=== PATIENT | female | born 1950 | race Native Hawaiian/Other Pacific Islander ===

== ENCOUNTER 2016-04-28 08:51 | Outpatient (CLI) | payer OTHER ==
[2016-04-28 09:50] LABS: POTASSIUM 4.5 mmol/L (3.6-5.2); SODIUM 134 mmol/L (136-145)
== END 2016-04-28 19:07 | disposition home or self-care (01) ==
LOC: LABW 08:51
PROVIDERS: Internal Medicine Nephrology
DX: N18.3 Chronic kidney disease, stage 3 (moderate) (principal); E78.2 Mixed hyperlipidemia; E66.8 Other obesity
CPT/HCPCS: 36415; 80048; 84443

== ENCOUNTER 2016-05-07 10:12 | Outpatient (CLI) | payer OTHER | END 2016-05-07 19:09 | disposition home or self-care (01) | LOC: RAD 10:12 | DX: R06.2 Wheezing (principal) ==

== ENCOUNTER 2016-07-26 08:08 | Outpatient (CLI) | payer OTHER ==
[2016-07-26 10:01] LABS: POTASSIUM 4.4 mmol/L (3.6-5.2)
== END 2016-07-26 19:22 | disposition home or self-care (01) ==
LOC: LABW 08:08
PROVIDERS: Internal Medicine Nephrology
DX: N18.9 Chronic kidney disease, unspecified (principal)
CPT/HCPCS: 36415; 80048; 81000; 82570; 84155

== ENCOUNTER 2016-08-19 08:51 | Outpatient (CLI) | payer OTHER | END 2016-08-19 19:06 | disposition home or self-care (01) | LOC: US 08:51 | DX: R06.2 Wheezing (principal); N18.3 Chronic kidney disease, stage 3 (moderate) ==

== ENCOUNTER 2016-09-27 13:11 | Outpatient (CLI) | payer OTHER | END 2016-09-27 19:12 | disposition home or self-care (01) | LOC: LABW 13:11 | DX: N39.0 Urinary tract infection, site not specified (principal) | CPT/HCPCS: 81000; 87086; 87088 ==

== ENCOUNTER 2016-10-04 13:21 | Outpatient (CLI) | payer OTHER | END 2016-10-04 14:30 | disposition home or self-care (01) | LOC: RAD 13:21 | DX: M54.89 Other dorsalgia (principal) ==

== ENCOUNTER 2016-10-28 09:06 | Outpatient (CLI) | payer OTHER ==
[2016-10-28 09:23] LABS: PLATELET COUNT 282 K/uL (152-353)
[2016-10-28 09:48] LABS: POTASSIUM 3.9 mmol/L (3.6-5.2)
== END 2016-10-28 19:15 | disposition home or self-care (01) ==
LOC: LABW 09:06
PROVIDERS: Internal Medicine Nephrology
DX: N18.3 Chronic kidney disease, stage 3 (moderate) (principal)
CPT/HCPCS: 36415; 80048; 85027

== ENCOUNTER 2017-01-26 09:34 | Outpatient (CLI) | payer OTHER ==
[2017-01-26 10:54] LABS: POTASSIUM 3.9 mmol/L (3.6-5.2)
== END 2017-01-26 19:28 | disposition home or self-care (01) ==
LOC: LABW 09:34
PROVIDERS: Internal Medicine Nephrology
DX: N18.3 Chronic kidney disease, stage 3 (moderate) (principal); E78.00 Pure hypercholesterolemia, unspecified; Z79.899 Other long term (current) drug therapy; Z51.81 Encounter for therapeutic drug level monitoring
CPT/HCPCS: 36415; 80053; 80061; 82306; 83970

== ENCOUNTER 2017-04-28 09:43 | Outpatient (CLI) | payer OTHER ==
[2017-04-28 10:26] LABS: POTASSIUM 4.1 mmol/L (3.6-5.2)
== END 2017-04-28 19:19 | disposition home or self-care (01) ==
LOC: LABW 09:43
PROVIDERS: Internal Medicine Nephrology
DX: N18.3 Chronic kidney disease, stage 3 (moderate) (principal); E78.2 Mixed hyperlipidemia
CPT/HCPCS: 36415; 80053; 80061

== ENCOUNTER 2017-05-05 10:45 | Outpatient (CLI) | payer OTHER | END 2017-05-05 11:45 | disposition home or self-care (01) | LOC: RAD 10:45 | DX: Z01.811 Encounter for preprocedural respiratory examination (principal) ==

== ENCOUNTER 2017-07-28 08:51 | Outpatient (CLI) | payer OTHER ==
[2017-07-28 09:26] LABS: PLATELET COUNT 365 K/uL (152-353)
== END 2017-07-28 22:04 | disposition home or self-care (01) ==
LOC: LABW 08:51
PROVIDERS: Internal Medicine Nephrology
DX: N18.3 Chronic kidney disease, stage 3 (moderate) (principal)
CPT/HCPCS: 36415; 80053; 85027

== ENCOUNTER 2017-10-26 09:35 | Outpatient (CLI) | payer OTHER ==
[2017-10-26 09:50] LABS: PLATELET COUNT 340 K/uL (152-353)
[2017-10-26 10:03] LABS: POTASSIUM 4.4 mmol/L (3.6-5.2)
== END 2017-10-26 22:35 | disposition home or self-care (01) ==
LOC: LABW 09:35
PROVIDERS: Internal Medicine Nephrology
DX: N18.3 Chronic kidney disease, stage 3 (moderate) (principal); Q61.2 Polycystic kidney, adult type
CPT/HCPCS: 36415; 80053; 82306; 83970; 84100; 85027

== ENCOUNTER 2018-02-07 09:54 | Outpatient (CLI) | payer OTHER | END 2018-02-07 21:20 | disposition home or self-care (01) | LOC: LABW 09:54 | DX: K64.0 First degree hemorrhoids (principal) | CPT/HCPCS: 82272; 87324; 87449 ==

== ENCOUNTER 2018-02-28 09:34 | Outpatient (CLI) | payer OTHER ==
[2018-02-28 09:59] LABS: POTASSIUM 4.4 mmol/L (3.6-5.2)
== END 2018-02-28 22:23 | disposition home or self-care (01) ==
LOC: LABW 09:34
PROVIDERS: Internal Medicine Nephrology
DX: N18.3 Chronic kidney disease, stage 3 (moderate) (principal)
CPT/HCPCS: 36415; 80048

== ENCOUNTER 2018-03-14 09:21 | Outpatient (CLI) | payer OTHER | END 2018-03-14 21:23 | disposition home or self-care (01) | LOC: US 09:21 | DX: Q61.2 Polycystic kidney, adult type (principal); R10.9 Unspecified abdominal pain ==

== ENCOUNTER 2018-04-27 08:34 | Outpatient (CLI) | payer OTHER ==
[2018-04-27 09:33] LABS: PLATELET COUNT 325 K/uL (152-353)
== END 2018-04-27 21:33 | disposition home or self-care (01) ==
LOC: LABW 08:34
PROVIDERS: Internal Medicine Nephrology
DX: Q61.2 Polycystic kidney, adult type (principal); R10.9 Unspecified abdominal pain
CPT/HCPCS: 36415; 81000; 85027

== ENCOUNTER 2018-05-11 10:19 | Outpatient (CLI) | payer OTHER, MEDICARE | END 2018-05-11 23:26 | disposition home or self-care (01) | LOC: RAD 10:19 | DX: M51.36 Other intervertebral disc degeneration, lumbar region (principal) ==

== ENCOUNTER 2018-07-27 08:31 | Outpatient (CLI) | payer OTHER, MEDICARE ==
[2018-07-27 09:56] LABS: POTASSIUM 4.1 mmol/L (3.6-5.2)
[2018-07-27 12:17] LABS: PLATELET COUNT 330 K/uL (152-353)
== END 2018-07-27 20:28 | disposition home or self-care (01) ==
LOC: LABW 08:31
PROVIDERS: Internal Medicine Nephrology
DX: Q61.2 Polycystic kidney, adult type (principal); E78.2 Mixed hyperlipidemia; N18.2 Chronic kidney disease, stage 2 (mild)
CPT/HCPCS: 36415; 80053; 80061; 81000; 85027

== ENCOUNTER 2018-08-25 10:13 | Outpatient (CLI) | payer OTHER, MEDICARE | END 2018-08-25 19:38 | disposition home or self-care (01) | LOC: RAD 10:13 | DX: R06.2 Wheezing (principal) ==

== ENCOUNTER 2018-11-30 09:40 | Outpatient (CLI) | payer OTHER, MEDICARE ==
[2018-11-30 10:04] LABS: POTASSIUM 4.6 mmol/L (3.6-5.2)
== END 2018-11-30 20:28 | disposition home or self-care (01) ==
LOC: LABW 09:40
PROVIDERS: Internal Medicine Nephrology
DX: N18.3 Chronic kidney disease, stage 3 (moderate) (principal)
CPT/HCPCS: 36415; 80048; 82306; 83970

== ENCOUNTER 2019-02-27 09:15 | Outpatient (CLI) | payer OTHER, MEDICARE ==
[2019-02-27 09:43] LABS: POTASSIUM 4.9 mmol/L (3.6-5.2)
== END 2019-02-27 22:26 | disposition home or self-care (01) ==
LOC: LABW 09:15
PROVIDERS: Internal Medicine Nephrology
DX: R73.9 Hyperglycemia, unspecified (principal); N18.3 Chronic kidney disease, stage 3 (moderate)
CPT/HCPCS: 36415; 80048; 83036

== ENCOUNTER 2019-04-30 09:32 | Outpatient (CLI) | payer OTHER, MEDICARE ==
[2019-04-30 10:18] LABS: POTASSIUM 4.8 mmol/L (3.6-5.2)
== END 2019-04-30 20:11 | disposition home or self-care (01) ==
LOC: LABW 09:32
PROVIDERS: Internal Medicine Nephrology
DX: N18.3 Chronic kidney disease, stage 3 (moderate) (principal); E78.2 Mixed hyperlipidemia
CPT/HCPCS: 36415; 80053; 82550; 84443; 86038

== ENCOUNTER 2019-09-13 08:32 | Outpatient (CLI) | payer OTHER, MEDICARE ==
[2019-09-13 09:05] LABS: POTASSIUM 4.4 mmol/L (3.6-5.2)
== END 2019-09-13 22:22 | disposition home or self-care (01) ==
LOC: LABW 08:32
PROVIDERS: Internal Medicine Nephrology
DX: E78.2 Mixed hyperlipidemia (principal); N18.3 Chronic kidney disease, stage 3 (moderate); R73.9 Hyperglycemia, unspecified
CPT/HCPCS: 36415; 80053; 80061; 83036

== ENCOUNTER 2019-10-30 08:46 | Outpatient (CLI) | payer OTHER, MEDICARE | END 2019-10-30 19:05 | disposition home or self-care (01) | LOC: LABW 08:46 | DX: K64.0 First degree hemorrhoids (principal) | CPT/HCPCS: 82272 ==

== ENCOUNTER 2019-11-13 09:10 | Outpatient (CLI) | payer OTHER, MEDICARE | END 2019-11-13 23:18 | disposition home or self-care (01) | LOC: LABW 09:10 | PROVIDERS: Internal Medicine Nephrology | DX: I12.9 Hypertensive chronic kidney disease with stage 1 through stage 4 chronic kidney disease, or unspecified chronic kidney disease (principal); N18.3 Chronic kidney disease, stage 3 (moderate); Q61.2 Polycystic kidney, adult type; R73.9 Hyperglycemia, unspecified; M15.0 Primary generalized (osteo)arthritis; E78.2 Mixed hyperlipidemia; K21.0 Gastro-esophageal reflux disease with esophagitis | CPT/HCPCS: 36415; 80053; 80061; 82550 ==

== ENCOUNTER 2020-02-14 09:16 | Outpatient (CLI) | payer OTHER, MEDICARE ==
[2020-02-14 09:49] LABS: POTASSIUM 4.7 mmol/L (3.6-5.2)
== END 2020-02-14 20:19 | disposition home or self-care (01) ==
LOC: LABW 09:16
PROVIDERS: Internal Medicine Nephrology
DX: I12.9 Hypertensive chronic kidney disease with stage 1 through stage 4 chronic kidney disease, or unspecified chronic kidney disease (principal); N18.30 Chronic kidney disease, stage 3 unspecified; Q61.2 Polycystic kidney, adult type; E78.2 Mixed hyperlipidemia; M15.0 Primary generalized (osteo)arthritis; K21.00 Gastro-esophageal reflux disease with esophagitis, without bleeding
CPT/HCPCS: 36415; 80053; 80061

== ENCOUNTER 2020-05-29 09:12 | Outpatient (CLI) | payer OTHER, MEDICARE | END 2020-05-29 21:10 | disposition home or self-care (01) | LOC: LABW 09:12 | PROVIDERS: ATTEND Internal Medicine Nephrology | DX: I12.9 Hypertensive chronic kidney disease with stage 1 through stage 4 chronic kidney disease, or unspecified chronic kidney disease (principal); N18.31 Chronic kidney disease, stage 3a; Q61.2 Polycystic kidney, adult type; E78.2 Mixed hyperlipidemia; M15.0 Primary generalized (osteo)arthritis | CPT/HCPCS: 36415; 80061; 82306; 83970; 84443 ==

== ENCOUNTER 2020-06-04 09:44 | Outpatient (CLI) | payer OTHER, MEDICARE | END 2020-06-04 19:34 | disposition home or self-care (01) | LOC: INF 09:44 | PROVIDERS: ATTEND Internal Medicine Endocrinology, Diabetes & Metabolism | DX: Z23 Encounter for immunization (principal) | CPT/HCPCS: 96372 ==

== ENCOUNTER 2020-07-01 09:43 | Outpatient (CLI) | payer OTHER, MEDICARE | END 2020-07-01 21:48 | disposition home or self-care (01) | LOC: INF 09:43 | PROVIDERS: ATTEND Internal Medicine | DX: Z23 Encounter for immunization (principal) | CPT/HCPCS: 96372 ==

== ENCOUNTER 2020-11-12 09:40 | Outpatient (CLI) | payer OTHER, MEDICARE ==
[2020-11-12 10:07] LABS: POTASSIUM 4.4 mmol/L (3.6-5.2)
[2020-11-12 10:09] LABS: PLATELET COUNT 329 K/uL (152-353)
== END 2020-11-12 14:53 | disposition home or self-care (01) ==
LOC: LABW 09:40
PROVIDERS: ATTEND Internal Medicine Nephrology
DX: Q61.2 Polycystic kidney, adult type (principal); I12.9 Hypertensive chronic kidney disease with stage 1 through stage 4 chronic kidney disease, or unspecified chronic kidney disease; E78.2 Mixed hyperlipidemia; M15.0 Primary generalized (osteo)arthritis; E66.9 Obesity, unspecified
CPT/HCPCS: 36415; 80053; 80061; 85027

== ENCOUNTER 2021-01-19 09:45 | Outpatient (CLI) | payer OTHER, MEDICARE ==
[2021-01-19 10:29] LABS: POTASSIUM 4.3 mmol/L (3.6-5.2)
== END 2021-01-19 19:32 | disposition home or self-care (01) ==
LOC: LABW 09:45
PROVIDERS: ATTEND Internal Medicine Nephrology
DX: N18.30 Chronic kidney disease, stage 3 unspecified (principal)
CPT/HCPCS: 36415; 80048

== ENCOUNTER 2021-02-11 09:41 | Outpatient (CLI) | payer OTHER, MEDICARE ==
[2021-02-11 10:47] LABS: POTASSIUM 4.2 mmol/L (3.6-5.2)
== END 2021-02-11 22:36 | disposition home or self-care (01) ==
LOC: LABW 09:41
PROVIDERS: ATTEND Internal Medicine Nephrology
DX: Q61.2 Polycystic kidney, adult type (principal); N18.31 Chronic kidney disease, stage 3a; I12.9 Hypertensive chronic kidney disease with stage 1 through stage 4 chronic kidney disease, or unspecified chronic kidney disease; R06.09 Other forms of dyspnea; E78.2 Mixed hyperlipidemia; M15.0 Primary generalized (osteo)arthritis; E66.9 Obesity, unspecified
CPT/HCPCS: 36415; 80053

== ENCOUNTER 2021-03-30 09:04 | Outpatient (CLI) | payer OTHER, MEDICARE | END 2021-03-30 18:59 | disposition home or self-care (01) | LOC: US 09:04 | PROVIDERS: ATTEND Internal Medicine Nephrology | DX: Q61.2 Polycystic kidney, adult type (principal); N18.31 Chronic kidney disease, stage 3a ==

== ENCOUNTER 2021-09-10 09:20 | Outpatient (CLI) | payer OTHER, MEDICARE ==
[2021-09-10 09:38] LABS: PLATELET COUNT 304 K/uL (152-353)
[2021-09-10 11:16] LABS: POTASSIUM 4.6 mmol/L (3.6-5.2)
== END 2021-09-10 18:56 | disposition home or self-care (01) ==
LOC: LABW 09:20
PROVIDERS: ATTEND Internal Medicine Nephrology
DX: Q61.2 Polycystic kidney, adult type (principal); N18.31 Chronic kidney disease, stage 3a; I12.9 Hypertensive chronic kidney disease with stage 1 through stage 4 chronic kidney disease, or unspecified chronic kidney disease; M51.36 Other intervertebral disc degeneration, lumbar region; E78.2 Mixed hyperlipidemia; E66.9 Obesity, unspecified; G47.33 Obstructive sleep apnea (adult) (pediatric)
CPT/HCPCS: 36415; 80053; 80061; 84443; 85027

== ENCOUNTER 2021-10-21 13:28 | Outpatient (CLI) | payer OTHER, MEDICARE | END 2021-10-21 18:57 | disposition home or self-care (01) | LOC: LABW 13:28 | PROVIDERS: ATTEND Internal Medicine Gastroenterology | DX: K64.0 First degree hemorrhoids (principal) | CPT/HCPCS: 82272 ==

== ENCOUNTER 2021-11-26 10:34 | Outpatient (CLI) | payer OTHER, MEDICARE ==
[2021-11-26 11:21] LABS: POTASSIUM 4.9 mmol/L (3.6-5.2)
== END 2021-11-26 21:21 | disposition home or self-care (01) ==
LOC: LABW 10:34
PROVIDERS: ATTEND Internal Medicine Nephrology
DX: Q61.2 Polycystic kidney, adult type (principal); N18.30 Chronic kidney disease, stage 3 unspecified; I12.9 Hypertensive chronic kidney disease with stage 1 through stage 4 chronic kidney disease, or unspecified chronic kidney disease; M51.36 Other intervertebral disc degeneration, lumbar region; E78.2 Mixed hyperlipidemia; G47.33 Obstructive sleep apnea (adult) (pediatric); M15.0 Primary generalized (osteo)arthritis; R73.9 Hyperglycemia, unspecified
CPT/HCPCS: 36415; 80053; 81002; 83036

== ENCOUNTER 2022-03-24 10:01 | Outpatient (CLI) | payer OTHER, MEDICARE | END 2022-03-24 19:03 | disposition home or self-care (01) | LOC: LABW 10:01 | PROVIDERS: ATTEND Internal Medicine Nephrology | DX: Q61.2 Polycystic kidney, adult type (principal); N18.30 Chronic kidney disease, stage 3 unspecified; I12.9 Hypertensive chronic kidney disease with stage 1 through stage 4 chronic kidney disease, or unspecified chronic kidney disease; R73.03 Prediabetes; E78.2 Mixed hyperlipidemia; E66.9 Obesity, unspecified; M51.36 Other intervertebral disc degeneration, lumbar region; G47.33 Obstructive sleep apnea (adult) (pediatric); M15.0 Primary generalized (osteo)arthritis | CPT/HCPCS: 36415; 80053; 82043; 82570; 83036 ==

== ENCOUNTER 2022-08-11 10:35 | Outpatient (CLI) | payer OTHER, MEDICARE ==
[2022-08-11 11:07] LABS: PLATELET COUNT 328 K/uL (152-353)
[2022-08-11 11:35] LABS: POTASSIUM 3.8 mmol/L (3.6-5.2)
== END 2022-08-11 19:08 | disposition home or self-care (01) ==
LOC: LABW 10:35
PROVIDERS: ATTEND Internal Medicine Nephrology
DX: I12.9 Hypertensive chronic kidney disease with stage 1 through stage 4 chronic kidney disease, or unspecified chronic kidney disease (principal); N18.30 Chronic kidney disease, stage 3 unspecified; Q61.2 Polycystic kidney, adult type; R73.03 Prediabetes; E78.2 Mixed hyperlipidemia; E66.9 Obesity, unspecified; M51.36 Other intervertebral disc degeneration, lumbar region; G47.33 Obstructive sleep apnea (adult) (pediatric); M15.0 Primary generalized (osteo)arthritis
CPT/HCPCS: 36415; 80053; 80061; 81002; 82306; 82570; 83970; 84100; 84156; 85027; 87086; 87088

== ENCOUNTER 2022-11-09 09:51 | Outpatient (CLI) | payer OTHER, MEDICARE ==
[2022-11-09 10:25] LABS: POTASSIUM 4.4 mmol/L (3.6-5.2)
== END 2022-11-09 20:20 | disposition home or self-care (01) ==
LOC: LABW 09:51
PROVIDERS: ATTEND Internal Medicine Nephrology
DX: M15.0 Primary generalized (osteo)arthritis (principal); N18.31 Chronic kidney disease, stage 3a; Q61.2 Polycystic kidney, adult type; I12.9 Hypertensive chronic kidney disease with stage 1 through stage 4 chronic kidney disease, or unspecified chronic kidney disease; R73.03 Prediabetes; E78.2 Mixed hyperlipidemia; E66.9 Obesity, unspecified; M51.36 Other intervertebral disc degeneration, lumbar region; G47.33 Obstructive sleep apnea (adult) (pediatric)
CPT/HCPCS: 36415; 80053; 80061; 83036

== ENCOUNTER 2023-05-10 09:04 | Outpatient (CLI) | payer OTHER, MEDICARE | END 2023-05-10 19:27 | disposition home or self-care (01) | LOC: NM 09:04 | PROVIDERS: ATTEND Nurse Practitioner | DX: I10 Essential (primary) hypertension (principal); R00.2 Palpitations; I25.10 Atherosclerotic heart disease of native coronary artery without angina pectoris; R07.89 Other chest pain | CPT/HCPCS: A9500 ==